=== PATIENT | female | born 1965 | race Caucasian/White ===

== ENCOUNTER 2020-11-05 17:07 | Inpatient (IN) | payer OTHER ==
[~2020-11-05] VITALS: Ht 162.6 cm; Wt 50.8 kg
[~2020-11-05 17:07] MED LIST: ALTACE 1.25 M1.25 M1 PO; ATIVAN1 MG PO; AUGMENTIN 875875 M1 PO; CLONAZEPAM OR; CLONAZEPAM PO; DESYREL50 MG PO; FOLIC ACID1 MG PO; HYDROCODONE-AP1 EAC6 PO; IBUPROFEN 800800 M1 PO; LANTUS SC; LIBRIUM10 MG PO; LISINOPRIL10 MG PO; MULTIPLE VITAM1 EAC3 PO; NOVOLOG100 UNIT/1 SQ; TRAZODONE 150150 M1 PO; VITAMIN B-1100 MG PO; ZENPEP DR 15,01 EACH PO
[2020-11-05 17:26] VITALS: BP 152/91
[2020-11-05 17:41] LABS: ABSOLUTE BASOPHILS 0.1 thou/uL (0.0-0.2); ABSOLUTE LYMPHOCYTES 5.1 thou/uL (0.8-5.3); ABSOLUTE MONOCYTES 1.5 thou/uL (0.0-1.2); ABSOLUTE NEUTROPHILS 9.3 thou/uL (1.6-8.1); BASOPHILS 0.3 %; EOSINOPHILS 0.2 %; HEMATOCRIT 34.6 % (37.0-47.0); HEMOGLOBIN 11.5 gm/dL (12.0-15.0); MCH 31.4 pg (26.0-34.0); MCHC 33.2 g/dL (28.0-37.0); MCV 94.5 fL (80.0-100.0); MONOCYTES 9.4 %; MPV 7.8 fl. (7.2-11.1); NUCLEATED RBCS 0 /100WBC; PLATELET COUNT* 376 thou/uL (150-400); POLYS 58.1 %; RBC 3.66 mil/uL (4.20-5.00); WBC 16.1 thou/uL (4.0-11.0)
[2020-11-05 17:48] LABS: CALCIUM 9.2 mg/dL (8.5-10.1); CREATININE 0.8 mg/dL (0.6-1.3)
[2020-11-05 17:53] LABS: ALBUMIN 3.2 g/dL (3.4-5.0); POTASSIUM 3.8 mmol/L (3.5-5.1); TOTAL BILIRUBIN 0.6 mg/dL (<0.1-1.0); TOTAL PROTEIN 7.4 g/dL (6.4-8.2)
[2020-11-05 19:06] LABS: APTT 26.4 Seconds (25.0-31.3); PROTIME 11.1 Seconds (9.20-11.50)
[2020-11-05 20:20] LABS: URINE BILIRUBIN NEGATIVE (Negative); URINE BLOOD NEGATIVE (Negative); URINE CLARITY CLEAR; URINE COLOR YELLOW; URINE GLUCOSE-RANDOM 3+ (Negative); URINE KETONES NEGATIVE (Negative); URINE LEUKOCYTES-REFLEX NEGATIVE (Negative); URINE NITRITE-REFLEX NEGATIVE (Negative); URINE PROTEIN NEGATIVE (Negative); URINE SPECIFIC GRAVITY <= 1.005 (1.005-1.030); URINE UROBILINOGEN 0.2 E.U./dl (0.2-1.0)
[2020-11-05 20:59] VITALS: BP 133/65
[2020-11-05 21:30] VITALS: BP 153/87
[2020-11-05 23:48] VITALS: BP 144/96
[2020-11-06 04:15] VITALS: BP 152/93
--- NOTE | 2020-11-06 05:03 | NUR ---
REPORT RECEIVED FROM ED NATALIA DONOVAN. PT ADMITTED FOR NSTEMI, CHF EXACERBATION, SOA, CHEST PAIN, AND PLEURAL EFFUSIONS. ASSUMED PT CARE AT APPROX. 2118. PT PRESENTED TO UNIT W/ HEPARIN DRIP AND AZITHROMYCIN ANTIBIOTIC INFUSION. PT C/O PAIN IN IV RAC. PT C/O BURNING SENSATION. ACCESS WAS FLUSHED, NO S/SX OF INFILTRATION. ICE PACK PLACED TO AREA. PT REPORTED PARTIAL PAIN RELIEF. PT HAD CRITICAL TROPONIN LABS. LABS CALLED INTO MD DANIELS, CARDIOLOGY. MD DANIELS STATED CONTINUE HEPARIN DRIP, NO NEW ORDERS AT THIS TIME. PT HAS BEEN ST-SR ON THE TELE-MONITOR. PT HAS DMII. BLOOD GLUCOSE TONIGHT WAS 421. MD HUERTA NOTIFIED VIA PHONE. ORDER RECIEVED FOR MODERATE SS INSULIN REGIMEN, ONE TIME DOSE OF 20 UNITS. PT REFUSED. PT STATED, "I ONLY WANT TO TAKE 5 UNITS. I AM AFRAID I WILL BOTTOM OUT MY BLOOD SUGAR." RN PROVIDED PT WITH EDUCATION REGARDING NEED TO LOWER BLOOD GLUCOSE. PT INSISTED TO TAKE ONLY 5 UNITS OF INSULIN. PT HAS BEEN RESTLESS DURING THE NIGHT. LABS REVIEWED. MEDICATIONS ADMINISTERED PRESCRIBED. ADMISSION ASSESSMENTS COMPLETED CHARTED. HOURLY ROUNDS COMPLETE CHARTED. PT CURRENTLY RESTING IN BED. WILL CONT. TO MONITOR.
[2020-11-06 05:07] LABS: HEMATOCRIT 33.1 % (37.0-47.0); HEMOGLOBIN 10.9 gm/dL (12.0-15.0); MPV 7.6 fl. (7.2-11.1); RBC 3.52 mil/uL (4.20-5.00); WBC 14.6 thou/uL (4.0-11.0)
[2020-11-06 05:30] LABS: ALBUMIN 3.2 g/dL (3.4-5.0); CALCIUM 8.9 mg/dL (8.5-10.1); CREATININE 0.7 mg/dL (0.6-1.3); TOTAL BILIRUBIN 0.4 mg/dL (<0.1-1.0); TOTAL PROTEIN 7.2 g/dL (6.4-8.2)
[2020-11-06 05:35] LABS: POTASSIUM 2.9 mmol/L (3.5-5.1)
[2020-11-06 09:11] VITALS: BP 171/112
[2020-11-06 11:02] VITALS: BP 155/88
--- NOTE | 2020-11-06 13:29 | 2DMMODE ---
[place] [address] 2 D/M-MODE ECHOCARDIOGRAM Name: MARIMAR MACKAY Room: [address] ADM IN [facility]#: [id number] Admission: 11/05/20 Attend Phys: Zaire Holliday Discharge: Date of : 61 Date of Service: 11/06/20 1329 Report #: [id number] THIS REPORT FOR: cc: Javier Stewart MD, Bruce D. MD Liston, Michael J. MD [facility] ~ APPROVED REPORT Study performed: 11/06/2020 10:41:55 EXAM: Comprehensive 2D, Doppler, and color-flow Echocardiogram Patient Location: In-Patient Room #: [facility] Status: routine BSA: 1.63 HR: 100 bpm BP: 171/112 mmHg Rhythm: NSR Other Information Study Quality: Good Indications Dyspnea 2D Dimensions IVSd: 9.91 (7-11mm) LVOT Diam: 19.01 (18-24mm) LVDd: 45.82 mm PWd: 8.61 (7-11mm) Ascending Ao: 25.52 (22-36mm) LVDs: 34.71 (25-40mm) Aortic Root: 27.88 mm Volumes Left Atrial Volume (Systole) LA ESV Index: 30.50 mL/m2 Aortic Valve AoV Peak Jaycob.: 1.15 m/s AO Peak Gr.: 5.31 mmHg LVOT Max P.63 mmHg AO Mean Gr.: 2.51 mmHg LVOT Mean P.03 mmHg LVOT Max V: 1.08 m/s AO V2 VTI: 17.13 cm LVOT Mean V: 0.64 m/s JASMYN (VTI): 2.85 cm2 LVOT V1 VTI: 17.16 cm AI [place]: 3.29 m/s2 [place] [address] 2 D/M-MODE ECHOCARDIOGRAM Name: MARIMAR MACKAY Room: [address] IN .R.#: [id number] Admission: 11/05/20 Attend Phys: Zaire Holliday Discharge: Date of : 61 Date of Service: 11/06/20 1329 Report #: [id number] AI PHT: 273.70 ms Mitral Valve E/A Ratio: 1.69 MV Decel. Time: 113.96 ms MV E Max Jaycob.: 1.16 m/s MV PHT: 33.05 ms MVA (PHT): 6.66 cm2 TDI E/Lateral E': 14.50 E/Medial E': 14.50 Medial E' Jaycob.: 0.08 m/s Lateral E' Jaycob.: 0.08 m/s Pulmonary Valve PV Peak Jaycob.: 0.73 m/s PV Peak Gr.: 2.12 mmHg Tricuspid Valve RAP Estimate: 5.00 mmHg TR Peak Gr.: 31.75 mmHg RVSP: 36.00 mmHg PA Pressure: 36.00 mmHg Left Ventricle The left ventricle is normal size. There is mild global hypokinesis. There is severe hypokinesis of the inferior and inferoseptal wall. There is normal left ventricular wall thickness. Left ventricular systolic function is moderately decreased. LVEF is 35-40%. Grade II - pseudonormal filling dynamics. Right Ventricle The right ventricle is normal size. The right ventricular systolic function is normal. Atria The left atrium size is normal. The right atrium size is normal. Aortic Valve The aortic valve is normal in structure. Mild aortic regurgitation. There is no aortic valvular stenosis. Mitral Valve The mitral valve is normal in structure. Moderate mitral regurgitation. No evidence of mitral valve stenosis[place] [address] 2 D/M-MODE ECHOCARDIOGRAM Name: MARIMAR MACKAY Room: [address] IN [facility]#: [id number] Admission: 11/05/20 Attend Phys: Zaire Holliday Discharge: Date of : 61 Date of Service: 11/06/20 1329 Report #: [id number] The tricuspid valve is normal in structure. Mild tricuspid regurgitation. Mild pulmonary hypertension. The RVSP is 35-40 mmHg. Pulmonic Valve The pulmonary valve is normal in structure. There is no pulmonic valvular regurgitation. Great Vessels The aortic root is normal in size. IVC is normal in size and collapses >50% with inspiration. Pericardium There is no pericardial effusion. Left pleural effusion. <Conclusion> The left ventricle is normal size. There is normal left ventricular wall thickness. Left ventricular systolic function is moderately decreased. LVEF is 35-40%. Grade II - pseudonormal filling dynamics. There is mild global hypokinesis. There is severe hypokinesis of the inferior and inferoseptal wall. Mild aortic regurgitation. Moderate mitral regurgitation. Mild tricuspid regurgitation. Mild pulmonary hypertension. The RVSP is 35-40 mmHg. IVC is normal in size and collapses >50% with inspiration. Left pleural effusion. <ELECTRONICALLY SIGNED> By: Deven Hill MD, FACC 11/06/20 1329 1329 1329 Deven Hill MD, FACC /INF
--- NOTE | 2020-11-06 14:09 | EKG ---
[place] [address] ELECTROCARDIOGRAM REPORT Name: MARIMAR MACKAY Room: [address] ADM IN ..#: [id number] Admission: 11/05/20 Attend Phys: Zaire Holliday Discharge: Date of : 61 Date of Service: 11/05/20 1719 Report #: [id number] THIS REPORT FOR: //name// [facility] ED Test Date: 2020-11-05 Test Time: 17:19:01 Pat Name: MARIMAR MACKAY Department: Room: [facility] Gender: F Driver Examiner: : 1965 Requested By: Kareem Raman Order Number: [id number] MD: Hardy Porter Measurements Intervals [place] Rate: 104 P: 26 NM: 144 QRS: -1 QRSD: 92 T: 122 QT: 345 QTc: 454 Interpretive Statements Sinus tachycardia septal q waves st segment depression, consider ischemia Lateral leads are also involved Baseline wander in lead(s) V3,V5,V6 Compared to ECG 09/18/2014 15:50:55 Sinus rhythm no longer present Myocardial infarct finding still present st segment depression noted Electronically Signed On 11-06-2020 14:09:26 CDT by Hardy Porter [email or web address] <ELECTRONICALLY SIGNED> By: Hardy Porter MD, [facility] 11/06/20 1409 18 171 Hardy Porter MD, [facility] /EPI
--- NOTE | 2020-11-06 14:52 | NUR ---
Pt is A&O. Resides at home with .Independent. No DME. NO hx of HH or SNF. Goal is home at dc, anticipate dc tomorrow per cards, no needs.
--- NOTE | 2020-11-06 15:15 | EKG ---
[place] [address] ELECTROCARDIOGRAM REPORT Name: MARIMAR MACKAY Room: [address] ADM IN .R.#: [id number] Admission: 11/05/20 Attend Phys: Zaire Holliday Discharge: Date of : 61 Date of Service: 11/06/20 0009 Report #: [id number] THIS REPORT FOR: //name// [facility] Test Date: 2020-11-06 Test Time: 00:09:40 Pat Name: MARIMAR MACKAY Department: Room: [address] Gender: F Records Manager: TR : 1965 Requested By: Zaire Holliday Order Number: [id number] Reading MD: Hardy Porter Measurements Intervals [place] Rate: 102 P: 45 [place]: 143 QRS: -11 QRSD: 81 T: 167 QT: 340 QTc: 443 Interpretive Statements Sinus tachycardia Probable left atrial enlargement Inferior infarct, old septal infarct, old Repol abnrm, severe global ischemia (LM/MVD) Compared to ECG 11/05/2020 17:19:01 no change Electronically Signed On 11-06-2020 15:15:23 CDT by Hardy Porter [email or web address] <ELECTRONICALLY SIGNED> By: Hardy Porter MD, FAC 11/06/20 1515 0009 0009 Hardy Porter MD, FAC /EPI
[2020-11-06 16:00] VITALS: BP 136/82
--- NOTE | 2020-11-06 17:02 | NUR ---
Pt has Mid-line which was placed per Gian from infusion services. RAC IV dc'd d/t burning with infusion. Heparin gtt infusing. PTTs have been subtherapeutic; see Heparin flow sheet. Next PTT ordered for 2200 tonight. Plan is for Cath with possible PCI 11/07; will be NPO after MN. VSS. Reports SOA improved from this morning following dose of furosemide; HR in low 100s this am, and now in 90s. Pt has had multiple visitors and personal calls today, which she states has been very encouraging today.
[2020-11-06 20:00] VITALS: BP 160/105
[2020-11-07] VITALS (18 sets, daily range): BP systolic 91–139; BP diastolic 52–83
[2020-11-07 04:17] LABS: HEMATOCRIT 29.6 % (37.0-47.0); MCH 31.7 pg (26.0-34.0); MCHC 33.7 g/dL (28.0-37.0); MCV 94.1 fL (80.0-100.0); RBC 3.14 mil/uL (4.20-5.00); RDW-CV 13.2 % (10.5-14.5); WBC 16.9 thou/uL (4.0-11.0)
[2020-11-07 04:26] LABS: CALCIUM 8.5 mg/dL (8.5-10.1); CREATININE 0.8 mg/dL (0.6-1.3); MAGNESIUM 1.9 mg/dL (1.8-2.4)
[2020-11-07 04:30] LABS: POTASSIUM 3.6 mmol/L (3.5-5.1)
--- NOTE | 2020-11-07 06:32 | NUR ---
NO ACUTE CHANGES THROUGHOUT SHIFT. SEE CHARTING FOR DETAILS. ALL ROUNDINGS COMPLETED, ALL NEEDS MET. BED LOCKED AND IN LOW POSITION. CALL LIGHT AND PERSONAL ITEMS IN REACH.
--- NOTE | 2020-11-07 08:00 | NUR ---
ASSUMED CARE OF PT AT 0730. PT RESTING IN BED. A&0X4, DENIES ANY PAIN OR SHORTNESS OF BREATH AT THIS TIME. PT NPO FOR HEART CATH TODAY. CONSENT SIGNED AND PLACED IN FRONT OF CHART. HEPARIN GTT INFUSING. TRACING SR/ST ON THE RN PERIOPERATIVE. ON RA SAT MID 90'S. PT UP AD ELISABETH IN ROOM. CARDIOLOGY CONSULT IN PLACE. PT GOAL FOR TODAY IS COMPLETE HEART CATH AND OBTAIN SPUTUM SAMPLE. AM ASSESSMENT CHARTED. MEDICATIONS PER SEP. PT REPOSITIONS SELF. HOURLY ROUNDING OBSERVED. BED IN LOW POSITION. CALL LIGHT WITHIN REACH. WILL CONTINUE PLAN OF CARE.
[2020-11-07 08:54] LABS: CHOLESTEROL 171 mg/dL (<200); HDL CHOLESTEROL 57 mg/dL (>40); LDL CHOLESTEROL 95 mg/dL (<100); SERUM ASSESSMENT Clear; TRIGLYCERIDE 99 mg/dL (<150); VLDL 20 mg/dL (<40)
--- NOTE | 2020-11-07 12:50 | EKG ---
[place] [address] ELECTROCARDIOGRAM REPORT Name: MARIMAR MACKAY Room: [address] ADM IN .R.#: [id number] Admission: 11/05/20 Attend Phys: Zaire Holliday Discharge: Date of : 61 Date of Service: 11/07/20 1203 Report #: [id number] THIS REPORT FOR: //name// [facility] Test Date: 2020-11-07 Test Time: 12:03:50 Pat Name: MARIMAR MACKAY Department: Room: [address] Gender: F Jukebox Operator: LENA : 1965 Requested By: Hardy Porter Order Number: [id number] Reading MD: Hardy Porter Measurements Intervals [place] Rate: 86 P: 53 [place]: 130 QRS: -2 QRSD: 94 T: 166 QT: 394 QTc: 472 Interpretive Statements Sinus rhythm Probable septal infarct, recent Compared to ECG 11/06/2020 00:09:40 Sinus tachycardia no longer present Possible ischemia no longer present Myocardial infarct finding still present Electronically Signed On 11-07-2020 12:50:12 CDT by Hardy Proter [email or web address] <ELECTRONICALLY SIGNED> By: Hardy Porter MD, [facility] 11/07/20 1250 1203 1203 Hardy Porter MD, [facility] /EPI
--- NOTE | 2020-11-07 12:54 | CON ---
[address] [address] CONSULTATION Name: CODIEMARIMAR Howard Room: [address] IN M.R.#: [id number] Admission: 11/05/20 Attend Phys: Js Esteves Discharge: Date of : 61 Report #: [id number] THIS REPORT FOR: cc: Javier Stewart MD, Bruce D. MD Liston, Michael J. MD [facility] ~ DOC #: [id number] cc: MD Deven Coffman MD DATE OF CONSULTATION: 11/06/2020 CARDIOLOGY CONSULT INDICATION: Heart failure. HISTORY OF PRESENT ILLNESS: The patient is a 55-year-old white female who awoke yesterday evening with profound paroxysmal nocturnal dyspnea. The only way she was able to catch her breath was to be sitting upright in a chair. She states she was short of breath for approximately 2 hours associated with significant yawning. She felt like she was not getting enough oxygen. She tried her 's CPAP without success. She tried an inhaler with minimal success. She ultimately was able to breathe better after a couple of hours sitting up. She presented to her primary care physician's office where her chest x-ray was abnormal. She was sent to the Emergency Room here at [facility] for further evaluation with a CT scan. There was no evidence of PE on CT scan. Her troponin was 7.2 consistent with non-ST elevation myocardial infarction. Throughout this episode, she complained mostly of shortness of breath and PND. She was not having harris chest pain. She denied any nausea, vomiting or diaphoresis. The patient had no previous episode of chest discomfort, so to speak. The patient has no prior cardiac history. Cardiac risk factors include diabetes and remote history of tobacco use. Her troponins have trended downward. Her EKG showed diffuse ST segment depression and possible evidence of prior inferior and/or anterior infarcts. No ST elevation was noted. At the time of interview, the patient is still having PND, but she is pain free. She is mildly tachycardic. Blood pressure is stable. PAST MEDICAL HISTORY: 1. Osteoporosis. 2. Insulin requiring type 2 diabetes. 3. Gastroesophageal reflux. 4. 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 5. History of hepatitis C, status post treatment. PAST SURGICAL HISTORY: [place] [address] CONSULTATION Name: MARIMAR MACKAY Room: [address]#: [id number] Admission: 11/05/20 Attend Phys: Js Esteves Discharge: Date of : 61 Report #: [id number] 1. Parathyroidectomy for hypercalcemia. 2. Tooth extraction with dentures. 3. Left elbow surgery for fracture and bursa sac removal. 4. Tubal ligation. FAMILY HISTORY: Noncontributory. SOCIAL HISTORY: The patient is . She quit drinking remotely. She quit smoking remotely. ALLERGIES: SULFA. HOME MEDICATIONS: Ramipril, Lantus, Humalog, trazodone, clonazepam, Fosamax, lansoprazole, vitamin D, and gabapentin. REVIEW OF SYSTEMS: A 14-point review of systems positive for seizures in the , unexplained fever after her vaccine recently, cough that is nonproductive, occasional palpitations. PND, orthopnea and paroxysmal nocturnal dyspnea as outlined above. Insulin requiring diabetes, hepatitis C, status post treatment, seasonal allergies, medical allergies as outlined above. History of depression and anxiety. She wears glasses and has diabetic retinopathy with visual loss in her right eye. She wears dentures. Otherwise, 14-point review of systems unremarkable. PHYSICAL EXAMINATION: VITAL SIGNS: Blood pressure 171/112, pulse 108. GENERAL: This is a pleasant female, in no distress. Mood and affect appropriate. HEENT: Extraocular muscles intact. Mucous membranes are moist. NECK: Shows jugular venous distention. There are no carotid bruits. CHEST: Reveals bilateral crackles. I do not appreciate wheezes. CARDIAC: Reveals a tachycardic rhythm that is regular without gallop or murmur. ABDOMEN: Examination of the abdomen reveals normal bowel sounds. Abdomen is soft, nontender. EXTREMITIES: Shows no edema. Peripheral pulses palpable. SKIN: Warm and dry. LABORATORY DATA: 12-lead EKG shows sinus tachycardia with ST segment depression diffusely. Initial EKG showed Q-waves in the inferior and anteroseptal leads. Chest x-ray obtained at outside office and not available for review. CT shows no evidence of pulmonary embolus and evidence of bilateral infiltrate, which could represent pulmonary edema. [address] [place] [address] CONSULTATION Name: MARIMAR MACKAY Room: [address] IN M.R.#: [id number] Admission: 11/05/20 Attend Phys: Js Esteves Discharge: Date of : 61 Report #: [id number] LABORATORY DATA: Reviewed. Sodium 137, potassium 2.9, chloride 100, bicarbonate 28, BUN 6, creatinine 0.7, serum glucose 169. LFTs within normal limits. Troponin 7.57, 7.07 and 6.35 sequentially. NT-proBNP 17,641. White blood cell count 14.6, hemoglobin 10.9, platelet count 400,000. IMPRESSION AND RECOMMENDATION: 1. Acute heart failure, possibly combined. We will obtain echocardiogram to further evaluate. Repeating bolus, IV Lasix. Starting carvedilol in addition to the patient's ASHLEIGH inhibitor. 2. Non-ST elevation myocardial infarction. The patient will need coronary angiography once her clinical status is stabilized. She is on a heparin drip presently. Continue aspirin daily as well. Further intervention pending results of angiography. 3. Tachycardia, possibly due to decompensated heart failure. We will try gentle diuresis as well as low dose beta manuela. Echocardiogram pending. 4. Diabetes per hospitalist. 5. Hypokalemia. We will start replacement protocol and give additional potassium. MD JARET Byrne/TAYE <ELECTRONICALLY SIGNED> By: Deven Hill MD, [facility] 11/07/20 1254 0922 52Micbettie Hill MD, [facility] /nt
--- NOTE | 2020-11-07 14:04 | NUR ---
Pt to have heart cath today, anticipate dc in a few days to home with no needs.
[2020-11-08 04:21] LABS: HEMATOCRIT 29.6 % (37.0-47.0); HEMOGLOBIN 9.8 gm/dL (12.0-15.0); MCH 31.7 pg (26.0-34.0); MCHC 33.2 g/dL (28.0-37.0); MCV 95.5 fL (80.0-100.0); MPV 7.7 fl. (7.2-11.1); RBC 3.11 mil/uL (4.20-5.00); RDW-CV 13.1 % (10.5-14.5); WBC 16.7 thou/uL (4.0-11.0)
[2020-11-08 04:32] LABS: CALCIUM 8.5 mg/dL (8.5-10.1); MAGNESIUM 2.1 mg/dL (1.8-2.4); POTASSIUM 3.8 mmol/L (3.5-5.1)
--- NOTE | 2020-11-08 06:42 | NUR ---
NO ACUTE CHANGES THROUGHOUT SHIFT. SEE CHARTING FOR DETAILS. ALL ROUNDINGS COMPLETED, ALL NEEDS MET. BED LOCKED AND IN LOW POSITION. CALL LIGHT AND PERSONAL ITEMS IN REACH. PT SLEPT THROUGH ENTIRE NIGHT.
[2020-11-08 08:20] VITALS: BP 135/92
--- NOTE | 2020-11-08 11:06 | EKG ---
[place] [address] ELECTROCARDIOGRAM REPORT Name: AMANDACODYMARIMAR A Room: [address] ADM IN ..#: [id number] Admission: 11/05/20 Attend Phys: Zaire Holliday Discharge: Date of : 61 Date of Service: 11/08/20810 Report #: [id number] THIS REPORT FOR: //name// [facility] Test Date: 2020-11-08 Test Time: 08:11:32 Pat Name: MARIMAR MACKAY Department: Room: [address] Gender: F Biazzi Nitrator Operator: : 1965 Requested By: Hardy Porter Order Number: [id number] MD: Hardy Porter Measurements Intervals [place] Rate: 83 P: 53 [place]: 130 QRS: -5 QRSD: 93 T: 177 QT: 390 QTc: 459 Interpretive Statements Sinus rhythm Probable anterior infarct, age indeterminate Compared to ECG 11/07/2020 12:03:50 No significant changes Electronically Signed On 11-08-2020 11:06:02 CDT by Hardy Porter [email or web address] <ELECTRONICALLY SIGNED> By: Hardy Porter MD, FAC 11/08/20 1106 0 Hardy Porter MD, [facility] /EPI
[2020-11-08 12:04] VITALS: BP 96/61
--- NOTE | 2020-11-08 13:08 | NUR ---
Cath yesterday with stents. IV lasix. Anticipate dc to home tomorrow. No needs.
--- NOTE | 2020-11-08 14:41 | CARD ---
[address] [address] CARDIAC CATH REPORT Name: CODIEMARIMAR Howard Room: [address] IN [facility]#: [id number] Admission: 11/05/20 Attend Phys: Js Esteves Discharge: Date of : 61 Report #: [id number] THIS REPORT FOR: cc: Javier Stewart MD, Bruce D. MD Blick,Hardy Mason MD [facility] ~ APPROVED REPORT Study performed: 11/07/2020 09:49:39 Patient Details Patient Status: In-Patient Room #: [facility] The patient is a 55 year-old female Event Personnel Virgil Peoples RTR Monitor, Josse Mathias Scrub, Huong Lieberman RN RN, Hardy Porter Residential Mental Health Worker Procedures Performed Left Heart Cath w/or w/o Coronaries [id number] [facility] [address] w/wo Plasty Single CIRC [id number] [address] w/wo Plasty Single LAD [id number] [address] Place w/wo Plasty Single RCA [id number] Hemostasis w/ Angioseal Indication Non-STEMI , Dyspnea, Heart failure, Cardiomyopathy, Chest pain Risk Factors Hypercholesterolemia, Hypertension, Diabetes Tobacco History () Admission/Lab Medications/Medications given during procedure Glycoprotein IllbIlla Inhibitors, Heparin Unfract., Midazolam (Versed) IV 2 mg, Lidocaine Subcut 20 ml, Fentanyl IV 25 mcg, Midazolam (Versed) IV 1 mg, Heparin IV 6000 units, Aggrastat Unknown 5 ml, Nitroglycerin IC 200 mcg, Effient PO 60 mg Procedure Narrative The patient was brought electively to the Cardiac Catheterization Laboratory and was prepped and draped in a sterile manner. The right femoral was infiltrated with 2% Lidocaine subcutaneous anesthesia. A Bellona 6 FR sheath was inserted into the right femoral artery. Coronary angiography was performed [place] [address] CARDIAC CATH REPORT Name: MARIMAR MACKAY Room: [address] IN [facility].#: [id number] Admission: 11/05/20 Attend Phys: Js Esteves Discharge: Date of : 61 Report #: [id number] catheters. The right coronary system was accessed and visualized with a Diagnostic JR4 6Fr catheter. The left coronary system was accessed and visualized with a Diagnostic JL4 6Fr catheter. The left ventricle was accessed and visualized with a Diagnostic Pigtail 6Fr catheter. Left ventricular/Aortic Valve gradient assessed via catheter pullback. Left ventriculogram was performed in AYDEN projection. Closure device was deployed with a 6 Fr Angioseal. The patient tolerated the procedure well and there were no complications associated with the procedure. There was no hematoma. Intraoperative Conscious Sedation Sedation start time: 1016 Case end Time: 1126 Fentanyl 100 mcg Versed 3 mg Fluoro Time: 10.4 minutes Dose: DAP 48277 cGycm2 1679.43 mGy Contrast Type and Amount: Omnipaque 230 ml Coronary Angiography The patient's coronary anatomy is right dominant. Diagnostic Cath Left Main 0% stenosis LAD 40% proximal stenosis. 70% stenosis at takeoff of the second diagonal branch. 90% stenosis in the mid LAD distal to the takeoff of second diagonal branch. Circumflex proximal circumflex appeared to be recently occluded with distal circumflex filling by bridging collaterals. Right Coronary ostial 95% stenosis, 90% proximal stenosis, 80% distal stenosis at the bifurcation, and 90% stenosis of a small distal right posterolateral branch. Initial arteriogram revealed the RCA to have a small diameter with slow antegrade flow, as well as retrograde flow from contralateral collaterals from the left coronary artery. Left Ventriculography The left ventricular ejection fraction is estimated to be 25-30%. There is 1+ mitral insufficiency. global hypokinesis noted of the left ventricle Hemodynamics The aortic pressure is 118/63 mmHg with a mean of 88 mmHg. The left ventricular pressure is 115/10 mmHg with a mean of mmHg. The left ventricular end diastolic pressure is 30 mmHg. There was no gradient across the aortic valve upon pullback. [place] [address] CARDIAC CATH REPORT Name: MARIMAR MACKAY Room: [address] IN [facility]#: [id number] Admission: 11/05/20 Attend Phys: Js Esteves Discharge: Date of : 61 Report #: [id number] ventricle to the aorta revealed no gradient across the aortic valve. PCI Technique Lesion Anticoagulation was achieved with Heparin. bolus of iv aggrastat given Percutaneous coronary intervention was performed on the proximal circumflex artery segment. The lesion stenosis prior to intervention was 100% with GERARDO 0 flow. A 6FR XB 3.5 100CM Guide Catheter was used to engage the Left ostium. A IG: BMW 190cm Interventional Guidewire was used to cross the lesion. BALLOON DILATION A Balloon catheter Euphora SC 2.0x10mm was inserted and inflated up to 14.00atm for 9seconds. Repeat angiography revealed the following post-dilatation results: 60% stenosis. STENT DEPLOYMENT A drug-eluting stent Harviell RX Stent 2.5X22mm was inserted and inflated up to 7.00atm for 18seconds. Repeat angiography revealed the following post-stent deployment results: 0% stenosis. Additional Inflation: 10.00atm for 18seconds. Additional Inflation: 11.00atm for 9seconds. Final angiography reveals 0 % stenosis with GERARDO 3 flow. PCI Technique Lesion 2 Percutaneous Coronary Intervention was performed on the mid left anterior descending artery segment. Percutaneous coronary intervention was performed on the mid left anterior descending artery segment. The lesion stenosis prior to intervention was 90% with GERARDO 3 flow. A 6FR XB 3.5 100CM Guide Catheter was used to engage the Left ostium. A IG: BMW 190cm Interventional Guidewire was used to cross the lesion. Balloon Dilation A Balloon catheter Euphora SC 2.0x10mm was inserted and inflated up to 16.00atm for 12seconds. Repeat angiography revealed the following post-dilatation results: 40% stenosis. Additional Inflation: 14.00atm for 8seconds. Stent Deployment A drug-eluting stent Ranjit RX Stent 2.5X38mm was inserted and inflated up to 8.00atm for 13seconds. Repeat angiography revealed the following post-stent deployment results: 0% stenosis. Additional Inflation: 12.00atm for 14seconds. Additional Inflation: 12.00[place] [address] CARDIAC CATH REPORT Name: MARIMAR MACKAY Room: [address]#: [id number] Admission: 11/05/20 Attend Phys: Js Esteves Discharge: Date of : 61 Report #: [id number] 9seconds. Final angiography reveals 0 % stenosis with GERARDO 3 flow. PCI Technique Lesion 3 Percutaneous Coronary Intervention was performed on the proximal right coronary artery. Percutaneous coronary intervention was performed on the proximal right coronary artery. The lesion stenosis prior to intervention was 95% with GERARDO 2 flow. A 6Fr JR 4.0 SH Guide Catheter was used to engage the Right ostium. A IG: BMW 190cm Interventional Guidewire was used to cross the lesion. Balloon Dilation A Balloon catheter Euphora SC 2.0x10mm was inserted and inflated up to 10.00atm for 18seconds. Repeat angiography revealed the following post-dilatation results: 60% stenosis. Additional Inflation: 10.00atm for 8seconds. Additional Inflation: 12.00atm for 9seconds. Stent Deployment A drug-eluting stent Harviell RX Stent 2.0X30mm was inserted and inflated up to 13.00atm for 15seconds. Repeat angiography revealed the following post-stent deployment results: 0% stenosis. Additional Inflation: 13.00atm for 8seconds. Additional Inflation: 16.00atm for 16seconds. Final angiography reveals 0 % stenosis with GERARDO 3 flow. Conclusion 1. 90% stenosis of the mid LAD 2. recent occlusion of the proximal circumflex artery. 3. 95% stenosis of the ostium of the RCA 4. LVEF 25-30% 5. successful placement of drug eluting stents in the proximal circumflex, mid LAD, and proximal RCA Recommendations consider ICD placement Medications Administered Prasugrel <ELECTRONICALLY SIGNED> By: Hardy Porter MD, [facility] 11/08/20 1440 1440 [id number] Porter MD, [facility] /INF
[2020-11-08 17:38] VITALS: BP 129/76
--- NOTE | 2020-11-08 18:53 | NUR ---
Pt reports pain to Rt groin due to activity; see MAR. VSS. Adjustments made to insulin regimen to help with achieving better control of BG (200s-300s earlier today). BG 151 before supper. Will continue to monitor.
[2020-11-09 03:58] VITALS: BP 145/86
[2020-11-09 04:21] LABS: CALCIUM 8.8 mg/dL (8.5-10.1); CREATININE 0.9 mg/dL (0.6-1.3); POTASSIUM 3.5 mmol/L (3.5-5.1)
[2020-11-09 08:26] VITALS: BP 145/88
--- NOTE | 2020-11-09 09:33 | NUR ---
LEFT CEPHALIC POWERGLIDE PRO MIDLINE ASSESSED FOR PATENCY. DRESSING REMOVED, LINE DISCOVERED COILED UNDERDRESSING WITH 1-2MM OF CATHETER INSIDE OF INERTION SITE. LINE REMOVED AND SITE CLEANSED WITH CHLOROPREP AND DRESSED WITH GAUZE 2X2. IV THERAPY NEEDS DISCUSSED WITH PERLA FISHER AND A PERIPHERAL IV WAS STARTED IN THE LEFT FOREARM TO ACCOMODATE REMAINING IV NEEDS.
[2020-11-09 11:15] VITALS: BP 137/87
[2020-11-09 14:57] VITALS: BP 110/70
[2020-11-09 16:30] VITALS: BP 135/79
[2020-11-09] MEDS ORDERED: LIPITOR 40 MG T40 M1 PO (17:47)
[2020-11-09] MEDS ORDERED: CARVEDILOL12.5 MG PO (17:47)
[2020-11-09] MEDS ORDERED: COZAAR 50 MG TA50 M1 PO (17:47)
[2020-11-09] MEDS ORDERED: BAYER CHEWABLE81 MG PO (17:47)
[2020-11-09] MEDS ORDERED: SPIRONOLACTONE25 MG PO (17:47)
[2020-11-09] MEDS ORDERED: EFFIENT10 MG PO (17:47)
[2020-11-09] MEDS ORDERED: AZITHROMYCIN 2250 MG PO (17:51)
[2020-11-09 18:17] VITALS: BP 135/79
--- NOTE | 2020-11-09 19:25 | NUR ---
Reviewed discharge teaching with patient and ; verbalized understanding. cafeteria monitor and IV dc'd. Discharged from unit per WC.
== END 2020-11-09 19:25 | disposition home or self-care (01) | DRG 246 ==
LOC: M.ERS 17:07 → M.2W 18:43 → M.TBA-ER 18:43 → M.2W 21:00
PROVIDERS: Family Medicine; Internal Medicine; Internal Medicine Cardiovascular Disease; Nurse Practitioner Family; ADMIT Internal Medicine; ATTEND Internal Medicine
PROC: 05HF33Z Insertion of Infusion Device into Left Cephalic Vein, Percutaneous Approach (ICD-10-PCS; principal; 2020-11-06)
PROC: B54NZZA Ultrasonography of Left Upper Extremity Veins, Guidance (ICD-10-PCS; principal; 2020-11-06)
PROC: 027236Z Dilation of Coronary Artery, Three Arteries with Three Drug-eluting Intraluminal Devices, Percutaneous Approach (ICD-10-PCS; 2020-11-07)
PROC: B2111ZZ Fluoroscopy of Multiple Coronary Arteries using Low Osmolar Contrast (ICD-10-PCS; 2020-11-07)
PROC: B2151ZZ Fluoroscopy of Left Heart using Low Osmolar Contrast (ICD-10-PCS; 2020-11-07)
PROC: 4A023N7 Measurement of Cardiac Sampling and Pressure, Left Heart, Percutaneous Approach (ICD-10-PCS; 2020-11-07)
PROC: 3E033PZ Introduction of Platelet Inhibitor into Peripheral Vein, Percutaneous Approach (ICD-10-PCS; 2020-11-07)
DX: I21.4 Non-ST elevation (NSTEMI) myocardial infarction (principal); J15.6 Pneumonia due to other Gram-negative bacteria; I50.43 Acute on chronic combined systolic (congestive) and diastolic (congestive) heart failure; Z20.822 Contact with and (suspected) exposure to COVID-19; E11.9 Type 2 diabetes mellitus without complications; M81.0 Age-related osteoporosis without current pathological fracture; K21.9 Gastro-esophageal reflux disease without esophagitis; E89.0 Postprocedural hypothyroidism; E87.6 Hypokalemia; F41.9 Anxiety disorder, unspecified; B19.20 Unspecified viral hepatitis C without hepatic coma; I25.10 Atherosclerotic heart disease of native coronary artery without angina pectoris; I25.5 Ischemic cardiomyopathy; Z79.899 Other long term (current) drug therapy; Z79.4 Long term (current) use of insulin; Z87.891 Personal history of nicotine dependence

== ENCOUNTER 2021-02-19 10:42 | Emergency (ER) | payer OTHER ==
[~2021-02-19] VITALS: Ht 157.5 cm; Wt 49.9 kg
[~2021-02-19 10:42] MED LIST changes: +AZITHROMYCIN 2250 MG PO; +BAYER CHEWABLE81 MG PO; +CARVEDILOL12.5 MG PO; +COZAAR 50 MG TA50 M1 PO; +EFFIENT10 MG PO; +LIPITOR 40 MG T40 M1 PO; +SPIRONOLACTONE25 MG PO
[2021-02-19 10:55] VITALS: BP 127/66
[2021-02-19 12:02] LABS: URINE BILIRUBIN NEGATIVE (Negative); URINE BLOOD NEGATIVE (Negative); URINE CLARITY CLEAR; URINE COLOR YELLOW; URINE GLUCOSE-RANDOM 3+ (Negative); URINE KETONES NEGATIVE (Negative); URINE LEUKOCYTES-REFLEX NEGATIVE (Negative); URINE NITRITE-REFLEX NEGATIVE (Negative); URINE PROTEIN NEGATIVE (Negative); URINE SPECIFIC GRAVITY <= 1.005 (1.005-1.030); URINE UROBILINOGEN 0.2 E.U./dl (0.2-1.0)
== END 2021-02-19 14:48 | disposition left against medical advice (07) ==
LOC: M.ERS 10:42
PROVIDERS: Nurse Practitioner Family
DX: R10.9 Unspecified abdominal pain (principal); Z53.21 Procedure and treatment not carried out due to patient leaving prior to being seen by health care provider